=== PATIENT | female | born 1990 | race Caucasian/White ===

== ENCOUNTER 2021-12-31 09:29 | Outpatient (CLI) | payer BC, SELFPAY ==
--- NOTE | 2021-12-31 11:00 | NEURO_ITS ---
Impression: # Complains of numbness of hands. # Bilateral Carpal Tunnel Syndrome, left more than right. # Needle/EMG exam mildly neurogenic. # Clinical correlation recommended. Nerve Conduction Studies Anti Sensory Summary Table Stim Site NR Peak (ms) P-T Amp (?V) Site1 Site2 Delta-P (ms) Dist (cm) Christiano (m/s) Left Median Anti Sensory (2-3nd Digit) Wrist 5.3 29.7 Wrist 2-3nd Digit 5.3 14.0 26 Wrist 5.6 20.1 Wrist 2-3nd Digit 5.3 14.0 26 Right Median Anti Sensory (2-3nd Digit) Wrist 4.6 33.6 Wrist 2-3nd Digit 4.6 14.0 30 Wrist 4.7 35.3 Wrist 2-3nd Digit 4.6 14.0 30 Left Radial Anti Sensory (Base 1st Digit) Wrist 2.1 11.8 Wrist Base 1st Digit 2.1 0.0 Right Radial Anti Sensory (Base 1st Digit) Wrist 2.2 16.9 Wrist Base 1st Digit 2.2 0.0 Left Ulnar Anti Sensory (5th Digit) Wrist 3.0 55.4 Wrist 5th Digit 3.0 14.0 47 Right Ulnar Anti Sensory (5th Digit) Wrist 2.4 52.5 Wrist 5th Digit 2.4 14.0 58 Motor Summary Table Stim Site NR Onset (ms) O-P Amp (mV) Site1 Site2 Delta-0 (ms) Dist (cm) Christiano (m/s) Left Median Motor (Abd Poll Brev) Wrist 6.6 1.0 Elbow Wrist 4.8 28.0 58 Elbow 11.4 0.2 Right Median Motor (Abd Poll Brev) Wrist 5.0 1.5 Elbow Wrist 4.6 27.0 59 Elbow 9.6 1.4 Left Ulnar Motor (Abd Dig Minimi) Wrist 2.8 6.9 A Elbow Wrist 7.7 29.0 38 A Elbow 10.5 4.6 B Elbow Wrist 4.4 22.0 50 B Elbow 7.2 2.1 Right Ulnar Motor (Abd Dig Minimi) Wrist 2.7 9.6 A Elbow Wrist 5.9 29.0 49 A Elbow 8.6 3.1 B Elbow Wrist 3.8 22.0 58 B Elbow 6.5 1.9 F Wave Studies NR F-Lat (ms) L-R F-Lat (ms) Left Median (Mrkrs) (Abd Poll Brev) 30.85 0.88 Right Median (Mrkrs) (Abd Poll Brev) 29.97 0.88 Left Ulnar (Mrkrs) (Abd Dig Min) 28.52 0.91 Right Ulnar (Mrkrs) (Abd Dig Min) 29.42 0.91 EMG Side Muscle Nerve Root Ins Act Fibs Amp Dur Recrt Comment Right 1stDorInt Ulnar C8-T1 Nml Nml Nml >12ms Reduced Right Ext Indicis Radial (Post Int) C7-8 Nml Nml Nml Nml Nml Right Ext Digitorum Radial (Post Int) C7-8 Nml Nml Nml Nml Nml Right BrachioRad Radial C5-6 Nml Nml Nml Nml Nml Right PronatorTeres Median C6-7 Nml Nml Nml Nml Nml Right Abd Poll Brev Median C8-T1 Nml Nml Nml >12ms Reduced Left 1stDorInt Ulnar C8-T1 Nml Nml Nml >12ms Reduced Left Ext Indicis Radial (Post Int) C7-8 Nml Nml Nml Nml Nml Left Ext Digitorum Radial (Post Int) C7-8 Nml Nml Nml Nml Nml Left BrachioRad Radial C5-6 Nml Nml Nml Nml Nml Left PronatorTeres Median C6-7 Nml Nml Nml Nml Nml Left Abd Poll Brev Median C8-T1 Nml Nml Nml >12ms Reduced Right ABD Dig Min Ulnar C8-T1 Nml Nml Nml >12ms Reduced Left ABD Dig Min Ulnar C8-T1 Nml Nml Nml >12ms Reduced MTDD
== END 2021-12-31 09:30 | disposition home or self-care (01) ==
PROVIDERS: PCP Internal Medicine; Visit Provider Plastic Surgery
DX: G56.03 Carpal tunnel syndrome, bilateral upper limbs (principal)
CPT/HCPCS: 95886; 95911

== ENCOUNTER 2022-02-26 01:47 | Day surgery (SDC) | payer BC, SELFPAY ==
[2022-02-18 15:24] VITALS: BMI 51.7
--- NOTE | 2022-02-18 15:25 | PC.NURSE ---
Report to the Outpatient Waiting Room, entrance under the green pavilion located off [facility], at time _0600_ on date _17-27-1452_. OR Time: _07_. - You and your visitor will be asked a series of questions to screen for COVID 19 for your protection. - Only one visitor is allowed at this time. - The patient visitor is requested to leave or wait in car when not with patient. - A mask is required within the hospital. Patients may have clear liquids (water, carbonated beverages, clear teas, apple juice) until 3 hours prior to surgery with a maximum of 20 ounces. - No food from midnight until time of surgery Take the following medications with a SIP of water the morning of surgery: ____Labetolol Medications to discontinue per physician Date to take last dose Please no make-up, nail cape verdean, hairspray, perfume, deodorant, or body powder the day of surgery. No jewelry (including any body piercings) or valuables the day of surgery, leave them at home. Please take a shower or bath the night before, or the morning of, surgery with an antibacterial soap. Wear comfortable, loose fitting clothing. - Jewelry must be removed prior to entering the operating room. Rings and piercings that are not removed may be cut off. - The hospital will not accept responsibility for valuables. - Please leave all valuables, including medications, at home the day of surgery. If you are going home after surgery, a licensed regional intermodal truck driver must drive you home. - NO public transportation without another adult. - We recommend that an adult stay with you for 24 hours following discharge. - We also recommend that you do not drive, make important decision, drink alcoholic beverages, or take any drugs that were not prescribed by your health care provider for at least 24 hours after your discharge time. Follow any additional instructions given to you from your surgeon. If you or anyone in your household have experienced Covid symptoms in the past week, please notify your surgeon or the nurse liaison at the phone number below for possible testing. Telephone instructions given to __Patient____and asked if any additional questions and then verbalized understanding. Patient advised to call surgeon office or pre surgery nurse liaison [phone] if any additional questions.
[2022-02-26] VITALS (14 sets, daily range): BP systolic 117–150; BP diastolic 62–91; PULSE 55–80; RESP 14–28; TEMP 36.4–36.6; O2SAT 92–98
[2022-02-26] MEDS: LACTATED RINGERS 1,000 ML 30 ML IV CONT ×2 (06:37→09:02)
--- NOTE | 2022-02-26 06:41 | WPDANESEPPF ---
Anes - Initial Pre Proc Eval Procedure: Operation Date: 02/26/22 07:30 Proposed Procedures p Right Open Carpal Tunnel Release, Right Ulnar Neuroplasty at Elbow - Abdirahman Powers MD Date/Time: 02/26/22 06:41 Surgeon: Abdirahman Powers MD Pre Op Diagnosis: right carpal and cubital tunnel syndrome Patient Data Age: 31 Gender: F Height: 1.73 m Weight: 154 kg Last Vital Signs Temp 36.4 C L 02/26/22 06:32 Pulse 77 02/26/22 06:32 Resp 14 02/26/22 06:32 BP 146/91 H 02/26/22 06:32 Pulse Ox 98 02/26/22 06:32 O2 Del Method Room Air 02/26/22 06:32 Allergies Allergy/AdvReac Type Severity Reaction Status Date / Time No Known Allergies Allergy Verified 02/18/22 15:15 Home Medications Medication Instructions Recorded Confirmed Type alprazolam 0.25 mg tablet 0.25 mg PO BID PRN Anxiety 02/18/22 02/18/22 History fexofenadine 180 mg tablet 180 mg PO DAILY 02/18/22 02/18/22 History labetalol 200 mg tablet 200 mg PO BID 02/18/22 02/18/22 History sertraline 50 mg tablet 50 mg PO HS 02/18/22 02/18/22 History Patient hx anesthesia problems: none Family hx anesthesia problems: none Results Review: All pre-operative results and documents have been reviewed as part of the pre-operative evaluation. [facility] Past Medical History Medical History (Updated 02/26/22 @ 06:41 by Qamar Desai MD) Depression HTN (hypertension) Morbid obesity Social History Social History Smoking status: Never smoker Living arrangements: with family Spiritual care concerns: No Anes - Eval Final PreProcedure Day of Procedure 02/26/22 06:41 Patient weight: morbidly obese Heart: regular rate and rhythm Lungs: clear to auscultation Airway: Mallampati scale class II Neurological: alert and oriented Last oral intake: >/= 8 hours ASA classification: III Emergent: no Anesthetic plan: proceed Anesthesia type and monitoring: general LMA and standard monitoring Results Review: All pre-operative results and documents have been reviewed as part of the pre-operative evaluation. Informed Consent: The patient's anesthetic plan and its attendant risks and benefits were discussed with the patient/family/POA. Questions were solicited and answers provided to the satisfaction of the patient/family/POA.
--- NOTE | 2022-02-26 07:14 | WPDHPUPDATE1 ---
History and Physical Update Update Date/Time: 02/26/22 07:14 History and Physical has been reviewed, including an updated exam of the patient. There are NO changes in the patient's condition. Risks, benefits, and alternatives have been discussed and questions answered. Patient agrees to proceed with procedure.
[2022-02-26] MEDS: LIDO 1%/EPINEPHRINE 1:100,000 10 ML VIAL INFILTRATE (07:23)
[2022-02-26] MEDS: BACITRACIN OINTMENT 15 GM TUBE 1 APPLIC TOPICAL (07:56)
[2022-02-26] MEDS: ONDANSETRON INJ 4 MG/2 ML VIAL IV PUSH (09:46)
--- NOTE | 2022-02-26 17:33 | W.PM.PROC2 ---
Procedure Note - Detailed Date of Procedure 02/26/22 Pre-op Diagnosis right carpal and cubital tunnel syndrome Post-op Diagnosis Same Procedure Performed Right open carpal tunnel release and right ulnar neuroplasty at the elbow. Surgeon Abdirahman Powers MD Anesthesia General Description of Procedure The right carpal tunnel area and the right cubital tunnel area were marked on the patient's upper extremity in the holding area. The patient was then taken to the operating room where she was placed supine on the operating table. She was given general endotracheal anesthesia. The anesthesiologist was called to room to assist with this. the right upper extremity was prepped and draped in usual fashion. The 2 sites were again marked for incision and locally infiltrated with 1% lidocaine with epinephrine. the extremity was exsanguinated and the tourniquet inflated 250 mmHg. Surgery was begun on the palm where the incision was made as marked. Dissection was carried through the subcutaneous tissue to the palmar aponeurosis. This was divided with a 15 blade revealing the transverse retinaculum. This was also incised with a 15. Blade opening the canal. Under 3 point retraction the ligament was divided distally and proximally to completely release it. No unusual anatomy was noted. The skin was closed with interrupted 5 0 nylon suture. Attention was turned to the elbow which was flexed on folded towels. the incision was made as marked and dissection was carried through the very ample subcutaneous tissue to the space between the medial epicondyle and the olecranon on . I did not encounter unusual muscle. Multiple small bleeding sites were coagulated. the nerve was identified just behind the medial epicondyle where the fascia was opened and were able to the insert scissors along the nerve. It was released 1st proximally where the intermuscular septum was released as a lay against the nerve. Beyond that a finger could easily be slipped alongside the nerve. more distally the nerve was followed under Walker ligament which was quite thick. Muscle fascia of the wrist flexors was also incised until a finger could be passed in that direction alongside the nerve. . There was no subluxation of this nerve with passive extension and flexion of the elbow. The tourniquet was released and additional bleeding points electrocoagulated on a setting of 20. Pieces of Gelfoam were placed proximally in the region of the intermuscular septum and distally were muscle had been divided. The wound was then closed with intradermal 3-0 interrupted Monocryl sutures. This was followed with a running intradermal 3-0 Monocryl skin closure followed by glue. The usual bandage is were applied. She was discharged from the operating room in stable condition Estimated Blood Loss 10 Drains No Packing No Pathology None sent Complications No immediate complications Condition Stable Disposition PACU
== END 2022-02-26 11:54 | disposition home or self-care (01) ==
PROVIDERS: PCP Internal Medicine; Visit Provider Plastic Surgery
PROC: (CPT 64721; principal; 2022-02-26 07:30)
DX: G56.01 Carpal tunnel syndrome, right upper limb (principal); G56.21 Lesion of ulnar nerve, right upper limb; I10 Essential (primary) hypertension; F32.A Depression, unspecified; E66.01 Morbid (severe) obesity due to excess calories; Z68.43 Body mass index [BMI] 50.0-59.9, adult
CPT/HCPCS: 64721; 64718; A9270; J0330; J1100; J2250; J2370; J2405; J2704; J3010; J7120

== ENCOUNTER 2022-05-29 02:47 | Day surgery (SDC) | payer BC, SELFPAY ==
[2022-05-23 10:12] VITALS: BMI 52.4
--- NOTE | 2022-05-23 10:16 | PC.NURSE ---
Addendum entered by Iliana Love RN 05/23/22 10:21: PT MAY ALSO TAKE ALPRAZOLAM MORNING OF SURGERY IF NEEDED Original Note: Report to the Outpatient Waiting Room, entrance under the green pavilion located off [facility], at time 0600 on date 05/29/22. Planned Procedure Time: 0730. Time changes happen often and if your time is changed the preop area will call you the afternoon before. - You and your visitor will be asked to self-screen and do not enter if you have any COVID symptoms. - We encourage only one visitor and NO visitors under age 16 are allowed at this time. Your visitor will receive communication by the phone number that is given day of service. - The patient visitor is requested to social distance or may leave the building when not with patient due to restrictions. - A mask is OPTIONAL within the hospital. Patients may have clear liquids (water, carbonated beverages, clear teas, apple juice) until 3 hours prior to surgery with a maximum of 20 ounces. - No food from midnight until time of surgery Take the following medications with a SIP of water the morning of surgery: LABETALOL, SERTRALINE Medications to discontinue per physician: N/A Date to take last dose: N/A Please no make-up, nail sami, hairspray, perfume, deodorant, or body powder the day of surgery. No jewelry (including any body piercings) or valuables the day of surgery, leave them at home. Please take a shower or bath the night before, or the morning of, surgery with an antibacterial soap. Wear comfortable, loose fitting clothing. - Jewelry must be removed prior to entering the operating room. Rings and piercings that are not removed may be cut off. - The hospital will not accept responsibility for valuables. - Please leave all valuables, including medications, at home the day of surgery. If you are going home after surgery, a licensed water truck driver must drive you home. - NO public transportation without another adult. - We recommend that an adult stay with you for 24 hours following discharge. - We also recommend that you do not drive, make important decision, drink alcoholic beverages, or take any drugs that were not prescribed by your health care provider for at least 24 hours after your discharge time. Follow any additional instructions given to you from your surgeon. If you or anyone in your household have experienced Covid symptoms in the past week, please notify your surgeon or the nurse liaison at the phone number below for possible testing. Telephone instructions given to PT - EFRAIN TRINIDAD and asked if any additional questions and then verbalized understanding. Patient advised to call surgeon office or pre surgery nurse liaison [phone] if any additional questions.
[2022-05-29] VITALS (7 sets, daily range): BP systolic 95–152; BP diastolic 72–92; PULSE 77–93; RESP 14–24; TEMP 36.2; O2SAT 92–98
--- NOTE | 2022-05-29 06:56 | P.PNAN_ITS ---
Anes - Initial Pre Proc Eval Procedure: Operation Date: 05/29/22 07:30 Proposed Procedures p Left Open Carpal Tunnel Release, Left Ulnar Neuroplasty at Elbow - Abdirahman Powers MD Date/Time: 05/29/22 06:56 Surgeon: Abdirahman Powers MD Pre Op Diagnosis: left carpal and cubital tunnel syndrome Patient Data Age: 31 Gender: F Height: 1.73 m Weight: 155.2 kg Allergies Allergy/AdvReac Type Severity Reaction Status Date / Time No Known Allergies Allergy Verified 05/29/22 06:19 Home Medications Medication Instructions Recorded Confirmed Type alprazolam 0.25 mg tablet 0.25 mg PO BID PRN Anxiety 02/18/22 05/29/22 History fexofenadine 180 mg tablet 180 mg PO DAILY 02/18/22 05/29/22 History labetalol 200 mg tablet 200 mg PO BID 02/18/22 05/29/22 History sertraline 50 mg tablet 75 mg PO HS 02/18/22 05/29/22 History liraglutide (weight loss) 3 mg/0.5 3 mg subcut DAILY 05/23/22 05/29/22 History mL (18 mg/3 mL) subcut pen injector (Saxenda) Patient hx anesthesia problems: other (needed intubation) Family hx anesthesia problems: none Results Review: All pre-operative results and documents have been reviewed as part of the pre- operative evaluation. [facility] Past Medical History Medical History Depression HTN (hypertension) Morbid obesity Social History Social History Smoking status: Never smoker Alcohol intake: current Alcohol use details: RARE Substance use: never Substance use type: does not use Living arrangements: with family Spiritual care concerns: No Anes - Eval Final PreProcedure Day of Procedure 05/29/22 06:56 Patient weight: morbidly obese Heart: regular rate and rhythm Lungs: decreased breath sounds Airway: Mallampati scale class II Neurological: alert and oriented Last oral intake: >/= 8 hours ASA classification: III Emergent: no Anesthetic plan: proceed Anesthesia type and monitoring: general LMA and standard monitoring Results Review: All pre-operative results and documents have been reviewed as part of the pre- operative evaluation. Informed Consent: The patient's anesthetic plan and its attendant risks and benefits were discussed with the patient/family/POA. Questions were solicited and answers provided to the satisfaction of the patient/family/POA.
--- NOTE | 2022-05-29 07:08 | WPDHPUPDATE1 ---
History and Physical Update Update Date/Time: 05/29/22 07:08 History and Physical has been reviewed, including an updated exam of the patient. There are NO changes in the patient's condition. Risks, benefits, and alternatives have been discussed and questions answered. Patient agrees to proceed with procedure.
--- NOTE | 2022-05-29 07:09 | WPDHPUPDATE1 ---
History and Physical Update Update Date/Time: 05/29/22 07:09 History and Physical has been reviewed, including an updated exam of the patient. There are NO changes in the patient's condition. Risks, benefits, and alternatives have been discussed and questions answered. Patient agrees to proceed with procedure.
[2022-05-29] MEDS: LACTATED RINGERS 1,000 ML 30 ML IV CONT ×2 (07:10→08:51)
[2022-05-29] MEDS: LIDO 2%/EPINEPHRINE 1:100,000 50 ML VIAL 20 ML INFILTRATE (08:22)
[2022-05-29] MEDS: BACITRACIN OINTMENT 15 GM TUBE 1 APPLIC TOPICAL (08:29)
--- NOTE | 2022-05-29 09:02 | P.OP_ITS ---
Procedure Note - Detailed Date of Procedure 05/29/22 Pre-op Diagnosis left carpal and cubital tunnel syndrome Post-op Diagnosis Same Procedure Performed Left open carpal tunnel release and left ulnar neuroplasty at the elbow Surgeon Abdirahman Powers MD Cover Stitch Machine Operator Francesca Anesthesia General Description of Procedure The left carpal tunnel and left cubital tunnel were marked on the patient in the holding area with her awareness. She was then taken to the operating room where she was placed supine on the operating table. A she was initially given a IV sedation and then later intubated with an LMA. The left upper extremity was prepped and draped in usual fashion. The 2 sites were marked for the incisions and each locally infiltrated with 2% lidocaine with epinephrine. The extremity was exsanguinated and tourniquet inflated to 250 mmHg. Incision was made 1st in the palm and blunt dissection revealed the palmar fascia. The this and the transverse retinaculum were incised with a 15. Blade. Canal was opened and under 3 point retraction the retinaculum was divided distally and proximally for complete release. It appeared that there was some additional fat within the carpal canal and that may have impinged distally on the median nerve the median nerve seemed to be a little edematous to my eye. The skin wound was then closed with interrupted 5 0 nylon suture. The elbow was then flexed and supported on folded towels. The incision was made as marked and dissection through the ample subcutaneous tissue revealed the ulnar nerve proximally. There was no area and pinch min on the nerve and that direction. Dissection was carried distally to Walker's ligament which was d ivided. The nerve appeared to be fairly encased in that region. The dissection was also carried through the flexor carpi ulnaris fascia. The nerve did not subluxate. The tourniquet was released the was no significant bleeding. The wound was closed with intradermal 3-0 Monocryl at multiple sites. The skin was coapted with glue. The usual bandages were applied both sides. She is discharge instructions wound care follow-up a prescription for hydrocodone 7. Was sent to her pharmacy Estimated Blood Loss 0 Drains No Packing No Pathology None sent Complications No immediate complications Condition Stable Disposition PACU
== END 2022-05-29 10:35 | disposition home or self-care (01) ==
PROVIDERS: PCP Internal Medicine; Visit Provider Plastic Surgery
PROC: (CPT 64721; principal; 2022-05-29 07:30)
DX: G56.02 Carpal tunnel syndrome, left upper limb (principal); G56.22 Lesion of ulnar nerve, left upper limb; I10 Essential (primary) hypertension; E11.9 Type 2 diabetes mellitus without complications; Z79.899 Other long term (current) drug therapy; E66.01 Morbid (severe) obesity due to excess calories; Z68.43 Body mass index [BMI] 50.0-59.9, adult
CPT/HCPCS: 64721; 64718; A9270; J1100; J2250; J2405; J2704; J3010; J7120